=== PATIENT | male | born 1965 | race Caucasian/White ===

== ENCOUNTER 2022-02-06 18:05 | Emergency (ER) | payer SELFPAY ==
[~2022-02-06] VITALS: Ht 170.2 cm; Wt 66.7 kg
[2022-02-06] MEDS ORDERED: PERCOCET 325 MG1 TA2 PO (18:18)
[2022-02-06] MEDS ORDERED: GOOD NEIGHBOR200 M1 PO (18:19)
[2022-02-06 19:03] LABS: BASO # 0.04 K/mm3 (0.02-0.10); EOS # 0.07 K/mm3 (0.04-0.40); EOS % 0.9 % (0.0-4.0); HEMATOCRIT 44.9 % (42.0-52.0); HEMOGLOBIN 15.3 g/dL (13.5-18.0); LYMPH# 1.03 K/mm3 (1.50-4.00); MEAN CELL VOLUME 88 fl (78-100); MEAN CORPUSCULAR HEMOGLOBIN 30 pg (27-31); MEAN CORPUSCULAR HGB CONC 34 g/dL (33-37); MEAN PLATELET VOLUME 9.1 fl (7.4-10.4); MONO # 0.92 K/mm3 (0.20-0.80); NEU # 5.67 K/mm3 (1.40-6.50); PLATELET COUNT 278 K/mm3 (130-400); RED CELL DISTRIBUTION WIDTH 12.1 % (11.5-14.5); WHITE BLOOD COUNT 7.7 K/mm3 (4.8-10.8)
[2022-02-06 19:09] LABS: ALBUMIN 4.8 g/dL (3.5-5.0); POTASSIUM 3.4 mmol/L (3.5-5.1)
[2022-02-06 19:10] LABS: CALCIUM 10.5 mg/dL (8.3-10.5)
[2022-02-06 19:13] LABS: TOTAL BILIRUBIN 0.9 mg/dL (0.2-1.2)
[2022-02-06] MEDS ORDERED: CEPHALEXIN500 M1 PO (19:47)
[2022-02-06 20:23] VITALS: BP 132/76
== END 2022-02-06 20:24 | disposition home or self-care (01) ==
LOC: ED 18:05
PROVIDERS: Nurse Practitioner Family
DX: S71.132A Puncture wound without foreign body, left thigh, initial encounter (principal); S61.212A Laceration without foreign body of right middle finger without damage to nail, initial encounter; W01.0XXA Fall on same level from slipping, tripping and stumbling without subsequent striking against object, initial encounter
CPT/HCPCS: 90714